=== PATIENT | female | born 1980 | race Caucasian/White ===

== ENCOUNTER 2020-06-29 05:55 | Inpatient (IN) | payer BC ==
[2020-06-29 06:40] VITALS: BMI 33.3
[2020-06-29] MEDS ORDERED: ELECTROLYTE-148 SOLN 500 ML IV SCH (07:45)
[2020-06-29] MEDS ORDERED: CITRIC ACID/SODIUM CITRATE 30 ML UNIT-DOSE CUP PO ONE ×2 (07:45→08:22)
[2020-06-29] MEDS ORDERED: morphine SULFATE/PF 0.5 MG/ML (2cc Syringe - QUVA) ONE (07:54)
[2020-06-29] MEDS ORDERED: ACETAMINOPHEN 325 MG TABLET (FP) PO PRN (08:00)
[2020-06-29] MEDS ORDERED: ONDANSETRON 4 MG/2 ML VIAL IVPUSH PRN (08:00)
[2020-06-29] MEDS ORDERED: ELECTROLYTE-148 SOLN 1,000 ML IV SCH (08:15)
--- NOTE | 2020-06-29 08:25 | HP ---
Past Medical History - Primary Care Physician PCP:: Richard Monk - Admission Chief Complaint: 40 yo @ 38.4 wks c/o painful UC; previous c/s x 2. 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 Weeks Gestation by Dates: 38.4 ...EDC by Dates: 07/09/20 - Past Surgical History Past Surgical History: Yes: Hx Myomectomy: No Hx Transabdominal Cerclage: No - Smoking History Smoking history: Never smoked Have you smoked in the past 12 months: No - Alcohol/Substance Use Hx Alcohol Use: No History of Substance Use: reports: None - Social History Usual Living Arrangement: Yes: With Spouse History of Recent Travel: No Home Medications - Allergies Allergies/Adverse Reactions: Allergies Allergy/AdvReac Type Severity Reaction Status Date / Time No Known Allergies Allergy Verified 06/29/20 06:51 - Home Medications Home Medications: Ambulatory Orders Vitamins (Sjr) - 1 tab PO DAILY 06/29/20 Family Medical History Family History: Denies Review of Systems - Review of Systems Constitutional: reports: No Symptoms Eyes: reports: No Symptoms HENT: reports: No Symptoms Neck: reports: No Symptoms Cardiovascular: reports: No Symptoms Respiratory: reports: No Symptoms Gastrointestinal: reports: No Symptoms Genitourinary: reports: Pain Breasts: reports: No Symptoms Reported Musculoskeletal: reports: No Symptoms Integumentary: reports: No Symptoms Neurological: reports: No Symptoms Endocrine: reports: No Symptoms Hematology/Lymphatic: reports: No Symptoms Psychiatric: reports: No Symptoms Physical Exam - Maternity Vital Signs: Vital Signs Temperature 98.2 F 06/29/20 05:55 Pulse Rate 78 06/29/20 05:55 Respiratory Rate 20 06/29/20 05:55 Blood Pressure 117/75 06/29/20 05:55 O2 Sat by Pulse Oximetry (%) Constitutional: Yes: Well Nourished, No Distress Eyes: Yes: WNL HENT: Yes: WNL Neck: Yes: WNL Cardiovascular: Yes: WNL Lungs: Clear to auscultation Breast(s): Yes: WNL - Abdominal Exam/OB Fundal Height: 40 Number of Fetuses: Single Presentation: Vertex Contractions: Yes Regularity: Irregular Intensity: Mild/Mod Monitor Mode: External Heart Rate Location: [facility] Category: I Accelerations: Uniform Decelerations: None - Vaginal Exam/OB Vaginal Bleeding: No Dilatation (cm): 1-2 cm Effacement (%): 90% Amniotic Membrane Status: Intact Presentation: Vertex/Position Station: -1 - Physical Exam Musculoskeletal: Yes: WNL Extremities: Yes: WNL Edema: Yes Edema: LLE: Trace, RLE: Trace Integumentary: Yes: WNL Deep Tendon Reflex Grade: Normal +2 ...Motor Strength: WNL Psychiatric: Yes: WNL Hemorrhage Risk Assessment - Risk Factors Medium Risk Factors: Yes: Prior , uterine surgery,or multiple laparotomies, EFW greater than 4000g Risk Score: 2 Risk Level: High Risk Problem List - Problems (1) AMA (advanced maternal age) multigravida 35+ Code(s): O09.529 - SUPERVISION OF ELDERLY MULTIGRAVIDA, UNSPECIFIED TRIMESTER (2) Gestational diabetes mellitus (GDM) in childbirth, diet controlled Code(s): O24.420 - GESTATIONAL DIABETES MELLITUS IN CHILDBIRTH, DIET CONTROLLED (3) 38 weeks gestation of Code(s): Z3A.38 - 38 WEEKS GESTATION OF (4) Previous delivery affecting , antepartum Code(s): O34.219 - MATERNAL CARE FOR UNSP TYPE SCAR FROM PREVIOUS DEL (5) GBS carrier Code(s): Z22.330 - CARRIER OF GROUP B STREPTOCOCCUS Assessment/Plan Admit to LD Rpt c/s x 3 Risks, benefits, alternatives of rpt c/s discussed at length with pt and her . Pt verbalized understanding and signed the consent form
[2020-06-29] MEDS ORDERED: OXYTOCIN 20 UNITS in 0.9% NS 20 UNIT/1,000 ML INFUS.BAG IV ONE (08:32)
--- NOTE | 2020-06-29 09:57 | OP ---
Operative Note - Note: Operative Date: 06/29/20 Pre-Operative Diagnosis: 40 yo @ 38.4 weeks GDM on diet in labor. Previous c/s x 2. AMA. GBS + Operation: rpt LTCS x 3 via Pfannenstiel Incision Findings: Baby boy born 9/9 cord gases and blood collected Placenta and memb complete Post-Operative Diagnosis: Same as Pre-op Surgeon: Richard Monk Teacher Private: Chandan Gray Anesthesiologist/MASS SPECTROMETRY MANAGER: Glen Samano Anesthesia: Spinal Specimens Removed: Placenta and membranes Estimated Blood Loss (mls): 800 Fluid Volume Replaced (mls): 1,000 Operative Report Dictated: No
[2020-06-29] MEDS ORDERED: IBUPROFEN 800 MG/8 ML IJ IVPB PRN (10:17)
[2020-06-29] MEDS ORDERED: IBUPROFEN 600 MG TABLET (FP) PO PRN (10:17)
[2020-06-29] MEDS ORDERED: oxyCODONE HCL 5 MG TABLET PO PRN (10:17)
[2020-06-29 10:20] LABS: CORD BASE EXCESS -5.3 mmol/L (0-2); CORD HCO3 20.3 mmHg (20-29); CORD PCO2 39.8 mmHg (30-78); CORD pH 7.326 (7.14-7.44)
[2020-06-29 10:23] LABS: CORD BASE EXCESS -6.5 mmol/L (0-2); CORD HCO3 21.9 mmHg (20-29); CORD pH 7.217 (7.14-7.44)
[2020-06-29] MEDS ORDERED: OXYTOCIN 20 UNITS in 0.9% NS 20 UNIT/1,000 ML INFUS.BAG IV SCH (10:30)
--- NOTE | 2020-06-29 12:02 | OP ---
DATE OF OPERATION: 06/29/2020 PREOPERATIVE DIAGNOSIS: Iboilp-[id number]-[id number]-old G6, para 1-1-0-3 at 38.4 weeks, GDM on diet, in labor, previous section x2, AMA, GBS positive. PROCEDURE: Repeat low transverse section x3 via Pfannenstiel incision. SURGEON: Nacho Cordova MD CABLE FORMER: RENATO Rocha ANESTHESIA: Spinal. ANESTHESIOLOGIST: Glen Samano MD COMPLICATIONS: None. ESTIMATED BLOOD LOSS: 800 mL. FLUIDS: Lactated Ringer's, 1000 mL. URINE OUTPUT: Clear urine, 300 mL, at the end of the procedure. SPECIMEN: Placenta and membrane. FINDINGS: Baby boy in cephalic presentation. 9, 9. Weight 7 pounds 15 ounces. Normal uterus, tubes, and ovaries. DESCRIPTION OF PROCEDURE: The patient was taken to the operating room where spinal anesthesia was administered without complication. She was prepped and draped in the usual sterile fashion in dorsal supine position with a leftward tilt. A Pfannenstiel skin incision was made with a scalpel and carried through to the underlying layer of fascia with the Bovie. The fascia was incised in the midline and the incision extended laterally with Maurer scissors. The superior and inferior aspect of fascial incision was grasped with Quin clamps, elevated, and the underlying rectus muscles dissected off bluntly. The rectus muscles were then in the midline, peritoneum identified, tented up, and entered sharply with Metzenbaum scissors. The peritoneal incision was extended superiorly and inferiorly with good visualization of the bladder. The bladder blade was then inserted and the vesicouterine peritoneum identified, grasped with pickups, and entered sharply with Metzenbaum scissors. This incision was then extended laterally and the bladder flap created digitally. The bladder blade was then reinserted and the lower uterine segment incised in transverse fashion with a scalpel. The uterine incision was then extended laterally with bandage scissors. The bladder blade was removed and the 's head delivered atraumatically. The nose and mouth were suctioned and the cord clamped and cut. The was handed off to the waiting resource development director. Cord gases and blood were collected. The placenta was then removed manually, the uterus exteriorized and cleared of all clots and debris. Uterine incision was repaired with 1-0 chromic in a running locked fashion, second layer of the same suture used to obtain hemostasis. The gutters were cleared of all clots and the peritoneum closed with 2-0 chromic. The fascia was reapproximated with 0 Vicryl in a running fashion, and the skin was closed with 4-0 Vicryl in subcuticular fashion. The patient tolerated the procedure well. Sponge, lap, needle counts were correct x2. The patient was taken to the recovery room in stable condition. NACHO CORDOVA MD [id number]
[2020-06-29] MEDS ORDERED: diphenhydrAMINE HCL 25 MG CAPSULE (FP) PO PRN (17:57)
[2020-06-29] MEDS ORDERED: CEFAZOLIN 1 GM in DEXTROSE 5%-WATER - 50 ML IVPB SCH (18:00)
[2020-06-29] MEDS ORDERED: CEFAZOLIN 1 GM/D5W 1 GM/50 ML BAG IVPB SCH (18:25)
[2020-06-29] MEDS: CEFAZOLIN 1 GM/D5W 1 GM/50 ML BAG IVPB SCH (18:32)
[2020-06-30] MEDS: CEFAZOLIN 1 GM/D5W 1 GM/50 ML BAG IVPB SCH ×2 (01:53→10:21)
[2020-06-30 08:34] LABS: BASO % 0.2 % (0-2.0); EOS % 1.5 % (0-4.5); HEMATOCRIT 31.9 % (32.4-45.2); HEMOGLOBIN 10.2 GM/dL (10.7-15.3); LYMPH % 9.6 % (8-40); MCH 25.7 pg (25.7-33.7); MCHC 32.1 g/dl (32.0-36.0); MEAN PLT VOLUME 8.7 fl (7.5-11.1); MONO % 7.2 % (3.8-10.2); NEUT % 81.5 % (42.8-82.8); PLATELET COUNT 187 K/MM3 (134-434); RBC 3.98 M/mm3 (3.60-5.2); RDW 16.5 % (11.6-15.6); WHITE BLOOD COUNT 13.1 K/mm3 (4.0-10.0)
[2020-06-30] MEDS ORDERED: DIPHTH,PERTUSS(ACELL),TET 0.5 ML DISP.SYRIN IM ONE (10:00)
[2020-06-30] MEDS ORDERED: BISACODYL 10 MG SUPP.RECT RC PRN (10:18)
[2020-06-30] MEDS: SIMETHICONE 80 MG TAB.CHEW (FP) PO PRN ×2 (10:20→20:03)
[2020-06-30] MEDS: ACETAMINOPHEN 325 MG TABLET (FP) PO PRN ×2 (10:20→20:03)
[2020-06-30] MEDS: ENOXAPARIN NA (PORCINE) 40 MG/0.4 ML DISP.SYRIN SQ SCH (10:21)
[2020-06-30] MEDS: IBUPROFEN 600 MG TABLET (FP) PO PRN ×2 (10:21→20:03)
[2020-06-30] MEDS: MAGNESIUM HYDROX 2400MG/30ML ORAL SUSPENSION 30 ML CUP PO SCH (10:21)
[2020-06-30] MEDS ORDERED: ACETAMINOPHEN 1000 MG/100 ML VIAL (NON FORMULARY) IVPB PRN (10:22)
--- NOTE | 2020-06-30 11:03 | PN ---
Progress Note (short form) - Note Progress Note: Anesthesia postop note 40 y/o F s/p spinal anesthesia/duramorph for section POD#1, vss,aaox3, pain well controlled, sensory motor intact distally. No anesthesia complications.
[2020-07-01] MEDS: MAGNESIUM HYDROX 2400MG/30ML ORAL SUSPENSION 30 ML CUP PO SCH (09:22)
[2020-07-01] MEDS: ENOXAPARIN NA (PORCINE) 40 MG/0.4 ML DISP.SYRIN SQ SCH (09:22)
[2020-07-01] MEDS: SIMETHICONE 80 MG TAB.CHEW (FP) PO PRN (09:23)
[2020-07-01] MEDS: ACETAMINOPHEN 325 MG TABLET (FP) PO PRN (09:23)
[2020-07-01] MEDS: IBUPROFEN 600 MG TABLET (FP) PO PRN (09:23)
--- NOTE | 2020-07-01 09:49 | DS ---
Physical Exam-PIANO REFINISHER Vital Signs: Vital Signs Temperature 98.2 F 06/30/20 20:06 Pulse Rate 100 H 06/30/20 20:06 Respiratory Rate 20 06/30/20 20:06 Blood Pressure 116/67 06/30/20 20:06 O2 Sat by Pulse Oximetry (%) 95 06/30/20 06:00 Constitutional: Yes: Well Nourished, No Distress, Calm Eyes: Yes: WNL, Conjunctiva Clear, EOM Intact HENT: Yes: WNL, Atraumatic, Normocephalic Neck: Yes: WNL, Supple, Trachea Midline Cardiovascular: Yes: WNL, Regular Rate and Rhythm Respiratory: Yes: WNL, Regular, CTA Bilaterally Gastrointestinal: Yes: WNL ...Rectal Exam: Yes: WNL Renal/: Yes: WNL Breast(s): Yes: WNL Musculoskeletal: Yes: WNL Extremities: Yes: WNL Integumentary: Yes: WNL Neurological: Yes: WNL, Alert, Oriented ...Motor Strength: WNL Psychiatric: Yes: WNL, Alert, Oriented Labs: CBC, BMP 06/30/20 07:23 Delivery - Delivery Type of Anesthesia: Spinal Episiotomy/Laceration: None EBL (cc): 800 Delivery, Single - Stages of Labor Date of Delivery: 06/29/20 Time of Delivery: 08:51 Time Placenta Delivered: 08:52 - Condition of Hide Washer/Chemical Recovery Operator Present: Yes Name: Maximino Cruz Infant Gender: Male Weight: 3.6 kg Position: Left, OT Total Hours ROM (Hrs/Mins): 2 min - 1 Minute Total Score: 9 5 Minutes Total Score: 9 - Feeding Plan Initial Plan: Exclusive throughout hospitalization Discharge Summary Problems reviewed: Yes Reason For Visit: SCHEDULED C/S ADMIT Current Active Problems 38 weeks gestation of (Acute) AMA (advanced maternal age) multigravida 35+ (Acute) GBS carrier (Acute) Gestational diabetes mellitus (GDM) in childbirth, diet controlled (Acute) Previous delivery affecting , antepartum (Acute) Condition: Good - Instructions Disposition: HOME - Home Medications Comprehensive Discharge Medication List: Ambulatory Orders Vitamins (Sjr) - 1 tab PO DAILY 06/29/20
[2020-07-01 10:13] VITALS: BP 110/75; PULSE 93; TEMP 98.9
--- NOTE | 2020-07-05 17:09 | PATH ---
Surgical Pathology Report Patient Name: DEVI BENOIT Med. Rec. #: [id number] /Age/Gender: 1980 (Age: 40) / F Account: [id number] Location: [facility] OBS/WIDTH STRIPPER Taken: 06/29/2020 Received: 06/30/2020 Reported: 07/05/2020 Physicians: Richard Monk M.D. Specimen(s) Received PLACENTA Clinical History at 38.4 weeks, GDM Final Diagnosis PLACENTA, SECTION: 521 G THIRD TRIMESTER PLACENTA WITH TRIVASCULAR UMBILICAL CORD AND UNREMARKABLE PLACENTAL MEMBRANES. Electronically Signed Johnna De La Torre M.D. Gross Description The specimen is received fresh labeled placenta and is a 521 gram, 14.5 x 4.0 x 4.3 cm. placenta with attached membranes and umbilical cord. The attached membranes are dejesus, translucent with focal opacities and insert marginally. The umbilical cord measures 15.5 cm. in length and averages 1.2 cm. in diameter. The cord inserts eccentrically, 4 cm. to the nearest margin. No true knots or strictures are identified. Cut surface of the umbilical cord reveals 3 vessels. The surface is cabrera-blue with minimal fibrin deposition and appropriate caliber vessels. The maternal surface is red-brown and intact. Sectioning reveals red-brown, spongy parenchyma. No lesions are identified. Dental Mold Maker sections are submitted in three cassettes as follows: 1- membrane rolls and umbilical cord; 2-3- full thickness sections of placenta. /07/02/2020 [facility]07/02/2020
== END 2020-07-01 13:10 | disposition home or self-care (01) | DRG 788 ==
LOC: JLDR 05:55 → J3W 12:30
PROVIDERS: ADMIT Obstetrics & Gynecology; ATTEND Obstetrics & Gynecology
PROC: 10D00Z1 Extraction of Products of Conception, Low, Open Approach (ICD-10-PCS; principal; 2020-06-29)
DX: O34.211 Maternal care for low transverse scar from previous cesarean delivery (principal); N85.8 Other specified noninflammatory disorders of uterus; O24.420 Gestational diabetes mellitus in childbirth, diet controlled; Z3A.38 38 weeks gestation of pregnancy; Z22.330 Carrier of Group B streptococcus; Z37.0 Single live birth
CPT/HCPCS: 36415; 36600; 82803; 82962; 85025; 88307-TC; 90715